=== PATIENT | male | born 1995 | race Caucasian/White ===

== ENCOUNTER 2016-08-03 08:56 | Emergency (ER) | payer OTHER ==
[2016-08-03] MEDS ORDERED: Ondansetron ODT TAB* 4 MG PO ONE (09:06)
[2016-08-03] MEDS ORDERED: Ibuprofen TAB* 600 MG PO ONE (09:06)
--- NOTE | 2016-08-03 09:15 | UC ---
Throat Pain/Nasal Carlos HPI - HPI Summary HPI Summary: 3 days of fever, sore throat nausea/vomiting - History of Current Complaint Hx Obtained From: Patient Onset/Duration: Sudden Onset, Lasting Days - 3 Severity: Moderate Pain Intensity: 8 Pain Scale Used: 0-10 Numeric Associated Signs & Symptoms: Positive: Hoarseness, Fever, Rash <Jyoti Lloyd - Last Filed: 08/03/16 11:07> <Shania De La Cruz - Last Filed: 08/03/16 11:40> - History of Current Complaint Chief Complaint: UCRespiratory Stated Complaint: SORE THROAT,FEVER,RASH Time Seen by Provider: 08/03/16 09:00 - Allergies/Home Medications Allergies/Adverse Reactions: Allergies Allergy/AdvReac Type Severity Reaction Status Date / Time No Known Allergies Allergy Verified 08/03/16 09:08 Home Medications: Home Medications Amphetamine MIXED SALT TAB* [Adderall TAB*] 10 mg PO DAILY 08/03/16 [History Confirmed 08/03/16] Ibuprofen TAB* [Advil TAB*] 400 mg PO Q6H PRN 08/03/16 [History Confirmed ] [id number] W/ APAP [Mucinex Fast-Max Cold Flu 2-02-910-325 mg] 1 tab PO SEE INSTRUCTIONS PRN 08/03/16 [History Confirmed 08/03/16] PMH/Surg Hx/FS Hx/Imm Hx Previously Healthy: Yes - Family History Known Family History: Positive: None Family History: no reported cardiovascular issues in family lineage, recent exposure to flu and mono - Social History Occupation: Student Lives: With Family Alcohol Use: None Substance Use Type: None Smoking Status (MU): Never Smoked Tobacco Have You Smoked in the Last Year: No - Immunization History Hx Tetanus, Diphtheria Vaccination: Yes Vaccination Up to Date: Yes <Jyoti Lloyd - Last Filed: 08/03/16 11:07> Review of Systems Constitutional: Fever Skin: Rash Eyes: Negative ENT: Sore Throat Respiratory: Negative Cardiovascular: Negative Gastrointestinal: Vomiting Genitourinary: Negative Motor: Negative Neurovascular: Negative Musculoskeletal: Negative Neurological: Negative Psychological: Negative All Other Systems Reviewed And Are Negative: Yes <Jyoti Lloyd - Last Filed: 08/03/16 11:07> Physical Exam Triage Information Reviewed: Yes Appearance: Well-Nourished, Ill-Appearing - moderate, Pain Distress - mild Vital Signs Reviewed: Yes Eye Exam: Normal Eyes: Positive: Conjunctiva Clear ENT Exam: Normal ENT: Positive: Normal ENT inspection, Hearing grossly normal, Pharyngeal erythema, Nasal congestion, Nasal drainage, TMs normal, Tonsillar swelling. Negative: Tonsillar exudate, Trismus, Muffled/hoarse voice Dental Exam: Normal Neck exam: Normal Neck: Positive: Supple, Nontender, Enlarged Nodes @ - anterior cervical Respiratory Exam: Normal Respiratory: Positive: Chest non-tender, Lungs clear, Normal breath sounds, No respiratory distress, No accessory muscle use Cardiovascular Exam: Normal Cardiovascular: Positive: No Murmur, Pulses Normal, Brisk Capillary Refill, Tachycardia Abdominal Exam: Other Abdomen Description: Positive: No Organomegaly, Soft, Other: - tender R and L Upper Quadrant Bowel Sounds: Positive: Present Musculoskeletal Exam: Normal Musculoskeletal: Positive: Strength Intact, ROM Intact, No Edema Neurological Exam: Normal Neurological: Positive: Alert, Muscle Tone Normal Psychological Exam: Normal Psychological: Positive: Normal Response To Family, Age Appropriate Behavior Skin Exam: Normal Skin: Positive: rashes <Jyoti Lloyd - Last Filed: 08/03/16 11:07> Vital Signs: Initial Vital Signs Temp 102.9 F 08/03/16 09:05 Pulse 112 08/03/16 09:05 Resp 18 08/03/16 09:05 BP 134/67 08/03/16 09:05 Pulse Ox 96 08/03/16 09:05 <Shania De La Cruz - Last Filed: 08/03/16 11:40> Diagnostics - Laboratory Diagnostic Studies Completed/Ordered: RST and Influenza A/B (-) <Jyoti Lloyd - Last Filed: 08/03/16 11:07> Throat Pain/Nasal Course/Dx - Course Assessment/Plan: rest increase fluids, prednisone, tylenol, ibuprofen, increase fluids, zofran for nausea, no physical activity, off school, lab studies, follow with [facility] in 2 days - Differential Dx/Diagnosis Differential Diagnosis/HQI/PQRI: Mononucleosis, Otitis Media, Pharyngitis, Sinusitis, URI Provider Diagnoses: Viral Illness, [place] <Jyoti Lloyd - Last Filed: 08/03/16 11:07> Discharge <Jyoti Lloyd - Last Filed: 08/03/16 11:07> <Shania De La Cruz - Last Filed: 08/03/16 11:40> - Discharge Plan Condition: Stable Disposition: HOME Prescriptions: Ondansetron ODT TAB* [Zofran 4 MG Odt TAB*] 4 mg PO Q6H PRN #4 tab.odt PRN Reason: nausea predniSONE TAB* [Deltasone TAB*] 50 mg PO QAM #4 tab Patient Education Materials: Ibuprofen (By mouth), Mononucleosis (ED), Viral Syndrome (ED) Forms: *School Release Ref[place]: [facility] [place] [facility] [place]] - 2 Days Non Staff,Doctor [Primary Care Provider] - Additional Instructions: Follow with [facility] office in 1-2 days. I will have you mono results back later today and I will call you with the result. No strenuous or physical activity until cleared by MD. To emergency department for decrease urination, unable to swallow or keep down fluids orally Attestation Statement User Type: Provider - I was available for consult. This patient was seen by the HELENE. The patient was not presented to, seen by, or examined by me. <Shania De La Cruz - Last Filed: 08/03/16 11:40>
[2016-08-03 10:05] VITALS: BP 112/98
[2016-08-03 13:15] LABS: EBV Response YES
[2016-08-03 13:29] LABS: Hematocrit 43 % (42-52); Hemoglobin 14.3 g/dl (14.0-18.0); Mean Corpuscular HGB Conc 34 g/dl (31-36); Mean Corpuscular Hemoglobin 30 pg (27-31); Mean Corpuscular Volume 89 fL (80-94); Mean Platelet Volume 10 um3 (7.4-10.4); Red Blood Count 4.79 10^6/ul (4.0-5.4); Red Cell Distribution Width 12 % (10.5-15); White Blood Count 12.8 10^3/ul (3.5-10.8)
[2016-08-03 13:35] LABS: Manual Entry Verification MD; Mono Internal Control QC Line Present
[2016-08-03 13:36] LABS: Comments Flag Yes
[2016-08-03 13:37] LABS: Add Diff/Slide Review? Slide Review Added
[2016-08-05 12:11] LABS: EBV Capsid Ag IgG Ab Negative (Negative); EBV Capsid Ag IgM Ab Negative (Negative)
== END 2016-08-03 10:14 | disposition home or self-care (01) ==
LOC: EDBD → UCCORT 08:56
DX: B34.9 Viral infection, unspecified (principal); B27.90 Infectious mononucleosis, unspecified without complication
CPT/HCPCS: 36415; 85025; 86308; 86664; 86665; 87502; 87651; 99203; A9270-GY; G0463